=== PATIENT | male | born 1970 | race Caucasian/White ===

== ENCOUNTER 2025-01-21 21:35 | Inpatient (IN) | payer MEDICAID, OTHER ==
[~2025-01-21] VITALS: Ht 193 cm; Wt 129.9 kg
[~2025-01-21 21:35] MED LIST: ETAN50IN10 SUBCUT; LEVO112T4 PO
--- NOTE | 2025-01-21 21:56 | ED.PDOC ---
Anoop. trauma (HPI) HPI Comments HPI: Poor Historian. 54 y.o male presents to the ED via EMS for a chief complaint of lower back s/p mechanical fall today at 0300. Patient reports getting out of the shower, slipped and landed on his buttocks/back with legs in the air. Patient was able to get himself up to ambulate after the fall. he felt a shot of sharp pain to his lower back. Patient is unable to bear weight as pain is severe per patient. Pain is worse with raising of bilateral lower extremity while patient is laying supine in the gurney. Patient also mentions hitting his head against the wall while falling down. Patient denies any LOC, nausea, vomiting, or dizziness. Patient denies any use of blood thinners Patient took pain medication at home that his gave him but unknown name. He denies any other complaints or symptoms. Denies cauda equina like symptoms. Denies any numbness or tingling anywhere in his body since the fall. Per EMS, stable vital signs on scene and en route. VITALS: Temp: BP: HR: RR: SPO2 Past medical history:Thyroid Past surgical history: Denies Denies allergies. REVIEW OF SYSTEMS: CONSTITUTIONAL: Denies acute: fever, diaphoresis, chills, generalized weakness. HEAD: Denies acute: headache, photophobia Eyes: Denies acute: Double vision, vision loss, eye pain, eye discharge. EARS: Denies acute: tinnitus, hearing loss, ear discharge, ear pain, THROAT: Denies acute: sore throat, swelling, difficulty swallowing , pain with sw allowing, change in voice. NECK: Denies acute: neck pain, neck swelling, stiff neck. HEART: Denies acute : chest pain, palpitations, LUNGS: Denies acute: SOB, wheezing, cough, hemoptysis ABDOMEN: Denies acute: abdominal pain, Nausea, Vomiting, diarrhea, melena , hematemesis, hematochezia SKIN: Denies acute: rash, redness, lesions, itchiness. EXTREMITIES: Denies acute: calf pain, numbness, tingling, weakness, denies pain in extremity. Neuro: Denies acute: focal neurological deficit, motor or sensory focal neurological deficit, tremors, seizure like activity, confusion, dizziness, change in mental status, loss of bowel or bladder function, cauda equina like symptoms. : Denies acute: dysuria, hematuria, flank pain, increase in urinary frequency. PSYCH: Denies acute: hallucination, suicidal ideation, homicidal ideation. PHYSICAL EXAM: General: To moderate acute distress, awake and alert. Head: normocephalic, atraumatic. Neck: supple, trachea is midline, no swelling. Throat: Normal phonation. Eyes:, no erythema, no purulent discharge, no proptosis, no icterus. Heart: regular rate, regular rhythm, no significant murmur appreciated. Lungs: no apparent respiratory distress, Able to speak in full sentences. No wheezing, no rhonchi, no crackles. No stridors Clear to auscultation bilaterally. Abdomen: non tender to palpation, non distended, soft, no guarding, no rebound, + bowel sounds. Obese Neuro: Awake, Alert, oriented to name, self, situation, follows commands GCS=15. Speech is normal. Decreased range of motion of bilateral lower extremity knee and hip flexion due to low back pain. Patient was neurovascularly intact in bilateral lower extremities. Skin: no petechia, no purpura, no cyanosis, non-pale, not jaundice. Lower extremities: --no - Pitting edema no deformity, no focal swelling, no calf TTP. Makes eye contact. moves all four extremities. Palpation of the paraspinal lumbosacral area is tender to palpation. Face: no apparent facial droop. ED COURSE: Chief Complaint: Back Pain Time Seen by MD: 21:48 Reviewed notes: Nurses Notes, Medications, Allergies Allergies: Coded Allergies: NO KNOWN ALLERGIES (Unverified , 01/21/25) Information Source: Patient Mode of Arrival: EMS Severity: Moderate Past Medical History PAST MEDICAL HISTORY: Thyroid Surgical History: Denies all surgeries Family History Family History: Reviewed,noncontributory to illness Social History Smoker: Non-Smoker Alcohol: Denies ETOH Use Drugs: Denies Drug Use Lives In: Home Was a procedure done? Was a procedure done?: No Differential Diagnosis Multiple Trauma: Closed Head Injury, Cardiac Injury, Fractures, Intraabdominal Injury, Pneumothorax, Cerebral Contusion, Pulmonary Contusion, Spine Injury, Vascular Injury, Contusion, Hematoma, Other (DDX included but not limited to Cauda Equina syndrome, lumbar radiculopathy, arthritis, disk herniation, sciatica, muscle strain, epidural abscess, transverse myelitis. Cord compression, spinal foraminal stenosis, spinal fractures, spondylosis, central canal stenosis, trauma, muscle sprain/strain, aneurysm/dissection, kidney stones, shingles, arthritis, [place], neoplasm.) X-Ray, Labs, Meds, VS Vital Signs Date Time Temp Pulse Resp B/P (MAP) Pulse Ox O2 Delivery O2 Flow Rate FiO2 01/21/25 21:35 98.9 65 17 156/106 (123) 100 Lab Test 01/21/25 22:40 01/21/25 22:30 Range/Units Hemoglobin A1c 5.2 <5.7 % A1C White Blood Count 7.6 4.4-10.8 10^3/uL Red Blood Count 4.44 L 4.5-5.90 10^6/uL Hemoglobin 15.1 13.5-17.5 g/dL Hematocrit 43.4 41.0-53.0 % Mean Corpuscular Volume 97.8 80.0-100.0 fL Mean Corpuscular Hemoglobin 34.0 H 28.0-32.0 pg Mean Corpuscular Hemoglobin Concent 34.8 32.0-36.0 g/dL Red Cell Distribution Width 12.7 11.8-14.3 % Platelet Count 280 140-450 10^3/uL Mean Platelet Volume 6.4 L 6.9-10.8 fL Neutrophils (%) (Auto) 65.3 37.0-80.0 % Lymphocytes (%) (Auto) 22.9 10.0-50.0 % Monocytes (%) (Auto) 8.0 0.0-12.0 % Eosinophils (%) (Auto) 2.9 0.0-7.0 % Basophils (%) (Auto) 0.9 0.0-2.0 % Neutrophils # (Auto) 5.0 1.6-8.6 10 ^3/uL Lymphocytes # (Auto) 1.7 0.4-5.4 10 ^3/uL Monocytes # (Auto) 0.6 0-1.3 10 ^3/uL Eosinophils # (Auto) 0.2 0-0.8 10 ^3/uL Basophils # (Auto) 0.1 0-0.2 10 ^3/uL Nucleated Red Blood Cells 0.0 % Sodium Level 137 136-145 mmol/L Potassium Level 4.0 3.5-5.1 mmol/L Chloride Level 105 98-107 mmol/L Carbon Dioxide Level 23 20-31 mmol/L Anion Gap 9 5-15 Blood Urea Nitrogen 9 9-23 mg/dL Creatinine 0.94 0.700-1.30 mg/dL Glomerular Filtration Rate Calc 95 >90 mL/min BUN/Creatinine Ratio 9.6 L 10.0-20.0 Serum Glucose 86 74-106 mg/dL Lactic Acid Level 1.8 0.4-2.0 mmol/L Calcium Level 9.7 8.7-10.4 mg/dL Total Bilirubin 0.6 0.2-1.0 mg/dL Aspartate Amino Transferase (AST) 18 13-40 U/L Alanine Aminotransferase (ALT) 21 7-40 U/L Alkaline Phosphatase 104 46-116 U/L Creatine Kinase 103 46-171 U/L Troponin I High Sensitivity 62 *H </=54 ng/L Total Protein 7.6 5.7-8.2 g/dL Albumin 4.9 H 3.2-4.8 g/dL Triglycerides Level 377 H < 150 mg/dL Cholesterol Level 212 H < 200 mg/dL LDL Cholesterol 128 H < 100 mg/dL HDL Cholesterol 39 L 40-59 mg/dL Current Medications Medications (Trade) Dose Ordered Sig/Ghazala Route Start Time Stop Time Status Last Admin Aspirin (Ecotrin Enteric Coated Tablet) 325 mg ONCE ONCE PO 01/21/25 23:15 01/21/25 23:20 DC 01/22/25 01:19 [place] [id number] Ph: [phone] DIAGNOSTIC IMAGING Diagnostic Imaging Report : [id number] Signed PATIENT: ARIN LOUIE ACCT: [id number] UNIT: [id number] : 1970 LOC: ER ROOM / BED: / AGE / SEX: 54 / M ADM STATUS: REG ER SERVICE 51 ORDERING PHYSICIAN: JAKUB FENG DO PROCEDURE(s): HWOCT - HEAD WITHOUT CONTRAST REASON: fall ORDER NUMBER(s): [id number], ACCESSION NUMBER(s): [id number] CT HEAD WITHOUT CONTRAST INDICATION: fall COMPARISON: None TECHNIQUE: CT of the head without intravenous contrast. RADIATION DOSE: CTDIvol: 63.67 mGy, DLP: 2793.26 mGy*cm FINDINGS: There is no evidence of intracranial hemorrhage, infarct, extra-axial collection, mass effect, midline shift, herniation or hydrocephalus. The ventricles, sulci and cisterns are normal. The moore-white differentiation is normal. Mucosal thickening in right frontal, bilateral ethmoid and right maxillary sinuses. Mastoid air cells and middle ear cavities are clear. Soft tissues and osseous structures are unremarkable. IMPRESSION: No intracranial abnormality identified. ATED BY: ADIEL GORDILLO MD DICTATED DATE/TIME: 01/21/252246 SIGNED BY: ADIEL GORDILLO MD SIGNED DATE/TIME: 01/21/252246 CC: [place] [id number] Ph: [phone] DIAGNOSTIC IMAGING Diagnostic Imaging Report : [id number] Signed PATIENT: ARIN LOUIE ACCT: [id number] UNIT: [id number] : 1970 LOC: ER ROOM / BED: / AGE / SEX: 54 / M ADM STATUS: REG ER SERVICE 51 ORDERING PHYSICIAN: JAKUB FENG DO PROCEDURE(s): ABPL - CT AB PEL WO CON-NO ORAL OR IV REASON: low back pain/fall injury ORDER NUMBER(s): [id number], ACCESSION NUMBER(s): [id number] Exam: CT AB PEL WO CON-NO ORAL OR IV History: low back pain/fall injury Comparison Study: None Contrast: None TECHNIQUE: Multidetector CT of abdomen and pelvis without intravenous contrast Radiation Dose Information: CT Dose: CTDI volume is 22.97 mGy. Dose-length product is 2793.26 mGy*cm FINDINGS: Lung bases demonstrate possible small airways disease. Heart is normal in size. Lower esophagus is unremarkable. Liver, gallbladder, spleen, pancreas, adrenals, liver, bladder, prostate, gastrointestinal tract are grossly unremarkable. Patient has probably had appendectomy. Pelvis is intact. Visualized ribs are intact. There is a simple cyst in the inferior pole of the right kidney which is of no clinical consequence . There is anterior wedging of L1 and T12 and T11. No definite fractures. No hernias are appreciated. IMPRESSION: 1. No trauma related changes. Possible small airways disease in the lower lobes of the lungs. ATED BY: NARINDER KOCH MD DICTATED DATE/TIME: 01/21/252309 SIGNED BY: NARINDER KOCH MD SIGNED DATE/TIME: 01/21/252309 CC: Time of 1ST Reevaluation: 21:52 Reevaluation 1ST: Unchanged Patient Education/Counseling: Diagnosis, Treatment Family Education/Counseling: No Family Present Comments Patient presented with the above HPI.---fall/low back pain injury---workup was initiated. patient was found with the above mentioned diagnosis. the following medications were ordered: please refer to order lists of meds and tests obtained by myself Dr. Feng. Patient ED course and VS have been stabilized. Patient has been reassessed in the ED and remained in a stable condition. Pertinent incidental findings were discussed with the patient and/or family. Patient/family voices understanding and is agreeable with plan. Patient has been observed in the ED adequate length of time to insure improvement/stability. Escalation of care considered: Consideration of escalation to observation or admission Patient was ADMITTED to the medicine team for further evaluation and treatment of their presentation. She was found with slightly elevated troponin. Denies any associated chest pain or shortness of breath. Patient was given aspirin. All the reports of any imaging studies that were ordered by myself were reviewed by myself. Departure 1 Departure Time of Disposition: 23:05 Impression: Primary Impression: Low back pain Additional Impressions: Fall Elevated troponin Disposition: ADMITTED INPATIENT Admit to: Tele Condition: Guarded Discharged With: Self Critical Care Note Critical Care Time?: Yes (35 min-critical care time only) I personally scribed for JAKUB FENG DO ([email or web address]) on 01/21/25 at 21:56. Electronically submitted by Conchis Mahoney ([facility]). I personally scribed for JAKUB FENG DO ([email or web address]) on 01/22/25 at 01:06. Electronically submitted by Gabriel Woods ([email or web address]). JAKUB FENG DO Jan 21, 2025 21:56
[2025-01-21 22:44] LABS: Basophils # (auto) 0.1 10 ^3/uL (0-0.2); Basophils % (auto) 0.9 % (0.0-2.0); Eosinophils # (auto) 0.2 10 ^3/uL (0-0.8); Eosinophils % (auto) 2.9 % (0.0-7.0); Hematocrit 43.4 % (41.0-53.0); Hemoglobin 15.1 g/dL (13.5-17.5); Lymphocytes # (auto) 1.7 10 ^3/uL (0.4-5.4); Lymphocytes % (auto) 22.9 % (10.0-50.0); Mean Corpuscular Hgb Conc. 34.8 g/dL (32.0-36.0); Mean Corpuscular Volume 97.8 fL (80.0-100.0); Monocytes # (auto) 0.6 10 ^3/uL (0-1.3); Neutrophils % (auto) 65.3 % (37.0-80.0); Platelet Count (auto) 280 10^3/uL (140-450); Red Blood Cells 4.44 10^6/uL (4.5-5.90); Red Cell Distribution Width 12.7 % (11.8-14.3); White Blood Cell 7.6 10^3/uL (4.4-10.8)
--- NOTE | 2025-01-21 22:49 | DVH ---
CT HEAD WITHOUT CONTRAST INDICATION: fall COMPARISON: None TECHNIQUE: CT of the head without intravenous contrast. RADIATION DOSE: CTDIvol: 63.67 mGy, DLP: 2793.26 mGy*cm FINDINGS: There is no evidence of intracranial hemorrhage, infarct, extra-axial collection, mass effect, midli ne shift, herniation or hydrocephalus. The ventricles, sulci and cisterns are normal. The moore-white differentiation is normal. Mucosal thickening in right frontal, bilateral ethmoid and right maxillary sinuses. Mastoid air cells and middle ear cavities are clear. Soft tissues and osseous structures ar e unremarkable. IMPRESSION: No intracranial abnormality identified.
[2025-01-21 22:58] LABS: Alanine Aminotransferase 21 U/L (7-40); Alkaline Phosphatase 104 U/L (46-116); Anion Gap 9 (5-15); Aspartate Aminotransferase 18 U/L (13-40); BUN/Creatinine Ratio 9.6 (10.0-20.0); Bilirubin, Total 0.6 mg/dL (0.2-1.0); Calcium 9.7 mg/dL (8.7-10.4); Carbon Dioxide 23 mmol/L (20-31); Chloride 105 mmol/L (98-107); Creatine Kinase IFCC 103 U/L (46-171); Glucose 86 mg/dL (74-106); Sodium 137 mmol/L (136-145); Total Protein 7.6 g/dL (5.7-8.2)
[2025-01-21 23:02] LABS: Albumin 4.9 g/dL (3.2-4.8); Blood Urea Nitrogen 9 mg/dL (9-23)
--- NOTE | 2025-01-21 23:13 | DVH ---
Exam: CT AB PEL WO CON-NO ORAL OR IV History: low back pain/fall injury Comparison Study: None Contrast: None TECHNIQUE: Multidetector CT of abdomen and pelvis without intravenous contrast Radiation Dose Information: CT Dose: CTDI volume is 22.97 mGy. Dose-length product is 2793.26 mGy*cm FINDINGS: Lung bases demonstrate possible small airways disease. Heart is normal in size. Lower esophagus is unremarkable. Liver, gallbladder, spleen, pancreas, adrenals, liver, bladder, prostate, gastrointestinal tract are grossly unremarkable. Patient has probably had appendectomy. Pelvis is intact. Visualized ribs are intact. There is a simple cyst in the inferior pole of the righ t kidney which is of no clinical consequence . There is anterior wedging of L1 and T12 and T11. No d efinite fractures. No hernias are appreciated. IMPRESSION: 1. No trauma related changes. Possible small airways disease in the lower lobes of the lungs.
[2025-01-22] MEDS ORDERED: ACETAMINOPHEN 325 MG TAB PO PRN
[2025-01-22] MEDS ORDERED: NITROGLYCERIN 0.4 MG SL TAB SL PRN
[2025-01-22] MEDS ORDERED: MORPHINE SULFATE INJ 2 MG/ml SYRG IV PRN
[2025-01-22] MEDS ORDERED: ONDANSETRON HCL 4 MG/2 ML VIAL IV PRN
[2025-01-22 00:13] LABS: Cholesterol 212 mg/dL (< 200); HDL Cholesterol 39 mg/dL (40-59); LDL Cholesterol 128 mg/dL (< 100); Triglycerides 377 mg/dL (< 150)
--- NOTE | 2025-01-22 00:15 | DVHHPRES ---
History of Present Illness Resident Creating Document: MARTA CASTELLANOS History of Present Illness This is a 54 year old male with a past medical history of psoriatic arthritis and hypothyroidism who presented to the ED with a chief complaints of mid back pain. According to the patient, he slipped and fell after shower. He mentioned that the floor was wet and he fell without loss of consciousness. He did not want to come to the ED until his daughter forced him to come to the ED and she called 911. CT pelvic did not reveal any trauma related changes. Possible small airways disease in the lower lobes of the lungs. He takes Enbrel for his psoriatic arthritis. On further questioning, Patient admits to using marijuana, has a remote history of methamphetamine and cocaine. However, he recently had cocaine and amphetamine use with his friends. This could probably explain the elevated troponin noted on today's examination lab work. Musculoskeletal: Other (psoariatic arthritis) Past Medical History See HPI Family History: None Smoke: # pack years (10 yeras pack history) Lives: with Family Review of Systems Constitutional: No: Fever, Chills, Sweats, Weakness, Malaise, Other Eyes: No: Pain, Vision change, Conjunctivae inflammation, Eyelid inflammation, Other, Redness ENT: No: Ear pain, Ear discharge, Nose pain, Nose discharge, Nose congestion, Mouth pain, Mouth swelling, Throat pain, Throat swelling, Other Respiratory: No: Cough, Dry, Shortness of breath, SOB with excertion, Wheezing, Hemoptysis, Pleuritic Pain, Sputum, Wheezing, Other Cardiovascular: No: Chest Pain, Palpitations, Orthopnea, Paroxysmal Noc. Dyspnea, Edema, Lt Headedness, Other Gastrointestinal: No: Nausea, Vomiting, Abdominal Pain, Diarrhea, Constipation, Melena, Hematochezia, Other Genitourinary: No Dysuria, No Frequency, No Incontinence, No Hematuria, No Retention, No Other Musculoskeletal: No: other, neck pain, shoulder pain, arm pain, back pain, hand pain, leg pain, foot pain Skin: No: Rash, Lesions, Jaundice, Bruising, Other Neurological: No: Weakness, Numbness, Incoordination, Change in speech, Confusion, Seizures, Other Allergies: Coded Allergies: NO KNOWN ALLERGIES (Unverified , 01/21/25) Medications Current Medications Medications Dose Ordered Sig/Ghazala Route Start Time Stop Time Status Last Admin Dose Admin Acetaminophen 650 mg Q6HP PRN PO 01/22/25 00:00 Ondansetron HCl 4 mg Q4HP PRN IV 01/22/25 00:00 Morphine Sulfate 2 mg Q4HPRN PRN IV 01/22/25 00:00 Enoxaparin Sodium 40 mg DAILY SC 01/22/25 10:00 Nitroglycerin 0.4 mg Q5MINP PRN SL 01/22/25 00:00 Morphine Sulfate 2 mg Q30M PRN IV 01/22/25 00:00 Exam Vital Signs Vital Signs Date Time Temp Pulse Resp B/P (MAP) Pulse Ox O2 Delivery O2 Flow Rate FiO2 01/21/25 21:35 98.9 65 17 156/106 (123) 100 Exam pending thorough neurological exam patient is currently not cooperating as he is in so much pain.Order placed for [place]. Will re-assess him once the pain is in improved. General Appearance: Oriented X3, severe distress HEENT: Atraumatic, PERRLA, EOMI, Mucous membr. moist/pink Respiratory: Clear to auscultation, Normal air movement Cardiovascular: Regular rate, Normal S1, Normal S2 Abdominal: Normal bowel sounds, Soft, No tenderness, No hepatospenomegaly Extremities: No clubbing, No cyanosis, No edema, Normal pulses Skin: No rashes, No breakdown Neuro: Strength at 5/5 X4 ext, Normal tone, Sensation intact, Cranial nerves 3- 12 NL, Reflexes 2+, Other (No weakness noted, patient is able to urinate without difficulties, no tingling sensation) Labs/Xrays Labs Test 01/21/25 23:51 01/21/25 22:40 01/21/25 22:30 Range/Units Hemoglobin A1c 5.2 <5.7 % A1C White Blood Count 7.6 4.4-10.8 10^3/uL Red Blood Count 4.44 L 4.5-5.90 10^6/uL Hemoglobin 15.1 13.5-17.5 g/dL Hematocrit 43.4 41.0-53.0 % Mean Corpuscular Volume 97.8 80.0-100.0 fL Mean Corpuscular Hemoglobin 34.0 H 28.0-32.0 pg Mean Corpuscular Hemoglobin Concent 34.8 32.0-36.0 g/dL Red Cell Distribution Width 12.7 11.8-14.3 % Platelet Count 280 140-450 10^3/uL Mean Platelet Volume 6.4 L 6.9-10.8 fL Neutrophils (%) (Auto) 65.3 37.0-80.0 % Lymphocytes (%) (Auto) 22.9 10.0-50.0 % Monocytes (%) (Auto) 8.0 0.0-12.0 % Eosinophils (%) (Auto) 2.9 0.0-7.0 % Basophils (%) (Auto) 0.9 0.0-2.0 % Neutrophils # (Auto) 5.0 1.6-8.6 10 ^3/uL Lymphocytes # (Auto) 1.7 0.4-5.4 10 ^3/uL Monocytes # (Auto) 0.6 0-1.3 10 ^3/uL Eosinophils # (Auto) 0.2 0-0.8 10 ^3/uL Basophils # (Auto) 0.1 0-0.2 10 ^3/uL Nucleated Red Blood Cells 0.0 % Sodium Level 137 136-145 mmol/L Potassium Level 4.0 3.5-5.1 mmol/L Chloride Level 105 98-107 mmol/L Carbon Dioxide Level 23 20-31 mmol/L Anion Gap 9 5-15 Blood Urea Nitrogen 9 9-23 mg/dL Creatinine 0.94 0.700-1.30 mg/dL Glomerular Filtration Rate Calc 95 >90 mL/min BUN/Creatinine Ratio 9.6 L 10.0-20.0 Serum Glucose 86 74-106 mg/dL Lactic Acid Level 1.8 0.4-2.0 mmol/L Calcium Level 9.7 8.7-10.4 mg/dL Total Bilirubin 0.6 0.2-1.0 mg/dL Aspartate Amino Transferase (AST) 18 13-40 U/L Alanine Aminotransferase (ALT) 21 7-40 U/L Alkaline Phosphatase 104 46-116 U/L Creatine Kinase 103 46-171 U/L Total Protein 7.6 5.7-8.2 g/dL Albumin 4.9 H 3.2-4.8 g/dL Triglycerides Level 377 H < 150 mg/dL Cholesterol Level 212 H < 200 mg/dL LDL Cholesterol 128 H < 100 mg/dL HDL Cholesterol 39 L 40-59 mg/dL Assessment/Plan Assessment/Plan Assessment and Plan Muscle strain secondary fo mechanical fall. No fractures noted on imaging Plan: --> check CK --> Adequate pain control with [place] --> PT evaluation --> monitor for any neurological deficiencies NSTEMI type II, rule out ACS --> Troponin: 62-->65 -->likely secondary to elevated high blood pressure in the setting of lower back pain after the fall --> Pain control for now, see above --> ECHO Polysubstance abuse --> Amphetamine --> Cannabinoid --> Educated the negative effects of substance abuse Psoriatic arthritis --> Continue Enbrel Hypothyroidism --> On levothyroxine 400mcg --> Check TSH Dyslipidemia --> Start Atorvastatin Obesity --> BMI: 36.6 --> Advise patient on weight loss and healthy diet Goal of care discussed for more than 30 minutes, full code status case and plan discussed with Dr. Henderson Plan discussed with: Patient Date of Service: Jan 21, 2025 Billing Provider: AILYN HENDERSON MD Common Visit Codes: [id number] INP/OBS CARE (HIGH) MARTA CASTELLANOS RESIDENT Jan 22, 2025 00:15 AILYN HENDERSON MD Jan 22, 2025 17:30
[2025-01-22] MEDS: HYDROcodone-ACET 5/325MG TAB PO ONE (01:16)
[2025-01-22] MEDS: HYDROcodone-ACET 7.5/325MG TAB PO ONE (01:19)
[2025-01-22] MEDS: ASPirin-EC 325mg tab PO ONE (01:19)
[2025-01-22 02:17] LABS: Urine Bacteria None Seen /hpf (None Seen)
[2025-01-22 02:35] LABS: Urine Blood Negative /uL (Negative); Urine Clarity Clear (Clear); Urine Color Colorless (Yellow); Urine Protein, UAD Negative (Negative); Urine Specific Gravity 1.009 (1.001-1.035); Urine Squamous Epithelial Cell FEW /hpf (<5); Urine Urobilinogen Normal (Negative); Urine WBC < 1 /HPF (0-3); Urine pH 7.5 (5.0-9.0)
[2025-01-22 02:40] LABS: Cannabinoid Screen, Urine Pos (NEGATIVE)
[2025-01-22 02:52] LABS: Amphetamine Screen, Urine Pos (NEGATIVE); Barbiturate Scree,Urine Neg (NEGATIVE); Benzodiazephine Screen, Urine Neg (NEGATIVE); Cocaine Screen, Urine Neg (NEGATIVE); Opiate Scree,Urine Neg (NEGATIVE); Phencyclidine Screen, Urine Neg (NEGATIVE)
[2025-01-22 04:33] LABS: Basophils # (auto) 0.1 10 ^3/uL (0-0.2); Basophils % (auto) 0.9 % (0.0-2.0); Eosinophils # (auto) 0.2 10 ^3/uL (0-0.8); Eosinophils % (auto) 2.9 % (0.0-7.0); Hemoglobin 14.5 g/dL (13.5-17.5); Lymphocytes # (auto) 1.6 10 ^3/uL (0.4-5.4); Lymphocytes % (auto) 20.2 % (10.0-50.0); Mean Corpuscular Hemoglobin 34.2 pg (28.0-32.0); Mean Corpuscular Hgb Conc. 35.5 g/dL (32.0-36.0); Mean Corpuscular Volume 96.5 fL (80.0-100.0); Monocytes # (auto) 0.7 10 ^3/uL (0-1.3); Monocytes % (auto) 8.3 % (0.0-12.0); Neutrophils # (auto) 5.3 10 ^3/uL (1.6-8.6); Neutrophils % (auto) 67.7 % (37.0-80.0); Platelet Count (auto) 296 10^3/uL (140-450); Red Blood Cells 4.25 10^6/uL (4.5-5.90); Red Cell Distribution Width 12.8 % (11.8-14.3); White Blood Cell 7.8 10^3/uL (4.4-10.8)
[2025-01-22 04:41] LABS: Chloride 104 mmol/L (98-107); Potassium 3.9 mmol/L (3.5-5.1); Sodium 137 mmol/L (136-145)
[2025-01-22 04:42] LABS: Anion Gap 9 (5-15); Calcium 9.5 mg/dL (8.7-10.4); Carbon Dioxide 24 mmol/L (20-31)
[2025-01-22 04:47] LABS: BUN/Creatinine Ratio 11.3 (10.0-20.0); Blood Urea Nitrogen 11 mg/dL (9-23); Glucose 103 mg/dL (74-106)
[2025-01-22] MEDS: LEVOTHYROXINE SODIUM 100 MCG TAB PO SCH (06:07)
[2025-01-22 06:28] VITALS: RESP 16; O2SAT 98
[2025-01-22] MEDS: MORPHINE SULFATE INJ 2 MG/ml SYRG IV PRN (08:01)
--- NOTE | 2025-01-22 09:19 | DVHPNRES ---
Progress Note Date Seen: Jan 22, 2025 Resident Creating Document: SILAS NASCIMENTO RESIDENT Medical Necessity Reason Pt with a Central, PICC or Fol: No Subjective Review of Systems This is a 54 year old male with a past medical history of psoriatic arthritis and hypothyroidism who presented to the ED with a chief complaints of mid back pain. According to the patient, he slipped and fell after shower. He mentioned that the floor was wet and he fell without loss of consciousness. He did not want to come to the ED until his daughter forced him to come to the ED and she called 911. CT pelvic did not reveal any trauma related changes. Possible small airways disease in the lower lobes of the lungs. He takes Enbrel for his psoriatic arthritis. On further questioning, Patient admits to using marijuana, has a remote history of methamphetamine and cocaine. However, he recently had cocaine and amphetamine use with his friends. This could probably explain the elevated troponin noted on today's examination lab work. The patient was seen and examined on the bedside. He is alert oriented x3. Complaint of back pain and not able to move due to the back pain. No other active complaint Constitutional: No: Fever, Chills, Sweats, Weakness, Malaise, Other Eyes: No: Pain, Vision change, Conjunctivae inflammation, Eyelid inflammation, Other, Redness ENT: No: Ear pain, Ear discharge, Nose pain, Nose discharge, Nose congestion, Mouth pain, Mouth swelling, Throat pain, Throat swelling, Other Respiratory: Shortness of breath, improving No: Cough, Dry,Wheezing, Hemoptysis, Pleuritic Pain, Sputum, Wheezing, Other Cardiovascular: No: Chest Pain, Palpitations, Orthopnea, Paroxysmal Noc. Dyspnea, Edema, Lt Headedness, Other Gastrointestinal: No: Nausea, Vomiting, Abdominal Pain, Diarrhea, Constipation, Melena, Hematochezia, Other Musculoskeletal: Back pain No: other, neck pain, shoulder pain, arm pain, hand pain, leg pain, foot pain Neurological:; No: Weakness, Numbness, Incoordination, Change in speech, Confusion, Seizures Objective vital signs Vital Sign Date Time Temp Pulse Resp B/P (MAP) Pulse Ox O2 Delivery O2 Flow Rate FiO2 01/22/25 08:31 87 12 143/87 01/22/25 07:26 Room Air* 0 21 01/22/25 06:34 98.7 98 98.7 medications Current Medications Medications Dose Ordered Sig/Ghazala Route Start Time Stop Time Status Last Admin Dose Admin Acetaminophen 650 mg Q6HP PRN PO 01/22/25 00:00 Ondansetron HCl 4 mg Q4HP PRN IV 01/22/25 00:00 Morphine Sulfate 2 mg Q4HPRN PRN IV 01/22/25 00:00 01/22/25 08:01 2 MG Enoxaparin Sodium 40 mg DAILY SC 01/22/25 10:00 Nitroglycerin 0.4 mg Q5MINP PRN SL 01/22/25 00:00 Acetaminophen/ Hydrocodone Bitart 1 tab Q4HP PRN PO 01/22/25 01:15 Atorvastatin Calcium 20 mg HS PO 01/22/25 22:00 Levothyroxine Sodium 400 mcg QAM@0600 PO 01/22/25 06:00 01/22/25 06:07 400 MCG Examination Physical examination: General Appearance: Alert, Oriented X3, Cooperative, mild distress HEENT: Atraumatic, PERRLA, EOMI, Mucous membrane moist/pink Respiratory: Clear to auscultation, Normal air movement Cardiovascular: Regular rate, Normal S1, Normal S2, No murmurs, no chest wall tenderness Abdominal: Normal bowel sounds, Soft, No tenderness, No hepatospenomegaly, No masses Extremities: No clubbing, No cyanosis, No edema, Normal pulses, No tenderness/swelling Skin: No rashes, No breakdown, No significant lesion Neuro: Normal speech, Strength at 5/5 X4 ext, Normal tone, Sensation intact, grossly intact cranial nerves Psych/Mental Status: Mental status NL, Mood NL laboratory and microbiology Laboratory Tests 01/22/25 04:24 Test 01/22/25 04:24 Range/Units Serum Glucose 103 74-106 mg/dL Labs and/or images reviewed: Labs reviewed by me, Image(s) reviewed by me Problem List/Assessment/Plan Problem List/Assessment/Plan Assessment and plan: # S/P mechanical fall - CT abdomen pelvis without contrast was negative for trauma - IV morphine 2 mg q.4 p.r.n. - [place] 7.5/325 mg p.o. q.4 p.r.n. # Possible NSTEMI type 2, rule out ACS - EKG revealed sinus rhythm, negative for ST-T changes - Troponin trends were 62>65>64 - BNP is normal - Pending chest x-ray, echo. # History of psoriatic arthritis - Continue Enbrel # Polysubstance abuse disorder - UDS positive for amphetamine and cannabinoids - Counseled patient regarding drug abuse and rehabilitation # Chronic hypothyroidism - Levothyroxine 400 mcg at q.a.m. - TSH is elevated because patient is noncompliance with the medication - Monitor TSH # Dyslipidemia - Atorvastatin 20 mg po at HS # Class 2 obesity, BMI 36.6 kg/m2 - Counseled the patient healthy diet, weight loss, moderate intensity physical exercise for 35-40 minutes for 5 times a week PUD prophylaxis: Pepcid 20 mg p.o. daily DVT prophylaxis: Lovenox 40 mg sc daily Code status : Full code Plan discussed with Dr. Ohara Plan discussed with: Patient, Other Date of Service: Jan 22, 2025 Billing Provider: NICOLÁS WYATT MD Common Visit Codes: [id number] INP/OBS CARE(HIGH) SILAS NASCIMENTO RESIDENT Jan 22, 2025 09:19 NICOLÁS WYATT MD Jan 27, 2025 23:30
[2025-01-22] MEDS: ENOXAPARIN SOD 40 MG/0.4 ML SYRINGE SC SCH (10:00)
[2025-01-22] MEDS: HYDROcodone-ACET 7.5/325MG TAB PO PRN (10:23)
--- NOTE | 2025-01-22 14:56 | DVH ---
CHEST RADIOGRAPH Indication: NSTEMI Technique: Single frontal view of the chest was obtained Comparison: None FINDINGS: Lines and Tubes: None Lungs: No focal consolidation. Pleura: No effusion. No pneumothorax. Cardiomediastinal contours: Unremarkable Bones: No acute osseous abnormality. IMPRESSION: No acute cardiopulmonary disease.
[2025-01-22] MEDS ORDERED: FAMOTIDINE 20 MG TAB PO ONE (15:30)
[2025-01-22 16:01] VITALS: BP 130/87; PULSE 79; RESP 20; TEMP 97.3; O2SAT 92
[2025-01-22 16:51] VITALS: BP 130/87; PULSE 79; RESP 17; TEMP 97.3; O2SAT 94
[2025-01-22 20:00] VITALS: PULSE 81; PULSE 89; RESP 18; O2SAT 97
[2025-01-22 20:43] VITALS: BP 123/86; PULSE 90; RESP 19; TEMP 98.6; O2SAT 94
[2025-01-22] MEDS: ATORVASTATIN 20 MG TAB PO SCH (21:04)
[2025-01-23] VITALS (8 sets, daily range): BP systolic 110–120; BP diastolic 73–78; PULSE 66–106; RESP 18–21; TEMP 98–98.6; O2SAT 91–97
[2025-01-23 07:43] LABS: Basophils # (auto) 0.1 10 ^3/uL (0-0.2); Basophils % (auto) 0.9 % (0.0-2.0); Eosinophils # (auto) 0.2 10 ^3/uL (0-0.8); Eosinophils % (auto) 3.2 % (0.0-7.0); Hematocrit 44.2 % (41.0-53.0); Hemoglobin 15.1 g/dL (13.5-17.5); Lymphocytes # (auto) 1.7 10 ^3/uL (0.4-5.4); Lymphocytes % (auto) 24.1 % (10.0-50.0); Mean Corpuscular Hgb Conc. 34.1 g/dL (32.0-36.0); Mean Corpuscular Volume 96.8 fL (80.0-100.0); Monocytes # (auto) 0.7 10 ^3/uL (0-1.3); Monocytes % (auto) 9.4 % (0.0-12.0); Neutrophils # (auto) 4.3 10 ^3/uL (1.6-8.6); Neutrophils % (auto) 62.4 % (37.0-80.0); Nucleated Red Blood Cells % 0.1 %; Platelet Count (auto) 322 10^3/uL (140-450); Red Blood Cells 4.57 10^6/uL (4.5-5.90); White Blood Cell 6.9 10^3/uL (4.4-10.8)
[2025-01-23 07:46] LABS: Chloride 104 mmol/L (98-107); Sodium 137 mmol/L (136-145)
[2025-01-23 07:47] LABS: Anion Gap 9 (5-15); Carbon Dioxide 24 mmol/L (20-31)
[2025-01-23 07:48] LABS: Calcium 9.6 mg/dL (8.7-10.4)
[2025-01-23 07:52] LABS: Glucose 97 mg/dL (74-106)
[2025-01-23 07:53] LABS: Blood Urea Nitrogen 17 mg/dL (9-23)
[2025-01-23] MEDS ORDERED: CYCLOBENZAPRINE HCL 10 MG TAB PO PRN (09:30)
[2025-01-23] MEDS: FAMOTIDINE 20 MG TAB PO SCH (09:46)
[2025-01-23] MEDS: KETOROLAC TROMETH 30 MG/ML 1ML VIAL IV ONE (11:53)
[2025-01-23] MEDS: methylPREDNISolone SOD SUCC 125 MG/2 ML VL IV ONE (11:53)
--- NOTE | 2025-01-23 14:30 | DVH ---
EXAM: CT LS SPINE WO CONTRAST HISTORY: Severe back pain COMPARISON: None CTDIvol 37.52 mGy, DLP 1322.67 mGy*cm. TECHNIQUE: Multiple axial CT images of the spine were obtained using bone algorithm. Axial and coron al reformatting was done. Bone and soft tissue windows were reviewed. FINDINGS: No CT evidence of definite acute fracture, spinal dislocation, or significant appearing acute subluxa tion is seen. The visualized paraspinal soft tissues are grossly unremarkable. Mild disc osteophyte hypertrophy and suggestion of mild canal stenosis at L4-L5. IMPRESSION: No definite CT evidence of acute fracture or dislocation of the bony lumbar spine.
--- NOTE | 2025-01-23 16:54 | DVHPNRES ---
Progress Note Date Seen: Jan 23, 2025 Resident Creating Document: SILAS NASCIMENTO RESIDENT Medical Necessity Reason Pt with a Central, PICC or Fol: No Subjective Review of Systems Patient was seen examined on the bedside. He is alert oriented x3. Complaint of severe back pain and not able to move to go to washroom. Ordered CT lumbosacral spine with contrast. Objective vital signs Vital Sign Date Time Temp Pulse Resp B/P (MAP) Pulse Ox O2 Delivery O2 Flow Rate FiO2 01/23/25 13:00 98.5 82 21 113/73 (86) 93 98.5 01/23/25 08:00 Room Air* 0 21 Total Intake and Output 01/22/25 01/22/25 01/23/25 15:00 23:00 07:00 Intake Total 300 ml 450 ml Output Total 800 ml Balance 300 ml -350 ml medications Current Medications Medications Dose Ordered Sig/Ghazala Route Start Time Stop Time Status Last Admin Dose Admin Acetaminophen 650 mg Q6HP PRN PO 01/22/25 00:00 Ondansetron HCl 4 mg Q4HP PRN IV 01/22/25 00:00 Morphine Sulfate 2 mg Q4HPRN PRN IV 01/22/25 00:00 01/22/25 21:05 2 MG Enoxaparin Sodium 40 mg DAILY SC 01/22/25 10:00 Nitroglycerin 0.4 mg Q5MINP PRN SL 01/22/25 00:00 Acetaminophen/ Hydrocodone Bitart 1 tab Q4HP PRN PO 01/22/25 01:15 01/23/25 03:00 1 TAB Atorvastatin Calcium 20 mg HS PO 01/22/25 22:00 01/22/25 21:04 20 MG Levothyroxine Sodium 400 mcg QAM@0600 PO 01/22/25 06:00 01/23/25 05:07 400 MCG Famotidine 20 mg DAILY PO 01/23/25 10:00 01/23/25 09:46 20 MG Cyclobenzaprine HCl 5 mg Q8HPRN PRN PO 01/23/25 09:30 Examination Physical examination: General Appearance: Alert, Oriented X3, Cooperative, No acute distress HEENT: Atraumatic, PERRLA, EOMI, Mucous membrane moist/pink Respiratory: Clear to auscultation, Normal air movement Cardiovascular: Regular rate, Normal S1, Normal S2, No murmurs, no chest wall tenderness Abdominal: Normal bowel sounds, Soft, No tenderness, No hepatospenomegaly, No masses Extremities: Possible muscle spasm, No clubbing, No cyanosis, No edema, Normal pulses. Skin: No rashes, No breakdown, No significant lesion Neuro: Normal gait, Normal speech, Strength at 5/5 X4 ext, Normal tone, Sensation intact, Cranial nerves 3-12 NL, Reflexes 2+ Psych/Mental Status: Mental status NL, Mood NL laboratory and microbiology Laboratory Tests 01/23/25 06:15 Test 01/23/25 06:15 Range/Units Serum Glucose 97 74-106 mg/dL Labs and/or images reviewed: Labs reviewed by me, Image(s) reviewed by me Problem List/Assessment/Plan Problem List/Assessment/Plan Assessment and plan: # S/P mechanical fall - CT abdomen pelvis without contrast was negative for trauma - IV morphine 2 mg q.4 p.r.n. - [place] 7.5/325 mg p.o. q.4 p.r.n. - Flexiril p.o. Q 8 HR p.r.n. - IV methylprednisolone 80 mg once - CT of L/S spine without contrast showed no definite CT evidence of acute fracture or dislocation of the bony lumbar spine. # Possible NSTEMI type 2, rule out ACS - EKG revealed sinus rhythm, negative for ST-T changes - Troponin trends were 62>65>64 - BNP is normal - Pending chest x-ray, echo. # History of psoriatic arthritis - Continue Enbrel # Polysubstance abuse disorder - UDS positive for amphetamine and cannabinoids - Counseled patient regarding drug abuse and rehabilitation # Chronic hypothyroidism - Levothyroxine 400 mcg at q.a.m. - TSH is elevated because patient is noncompliance with the medication - Monitor TSH # Dyslipidemia - Atorvastatin 20 mg po at HS # Class 2 obesity, BMI 36.6 kg/m2 - Counseled the patient healthy diet, weight loss, moderate intensity physical exercise for 35-40 minutes for 5 times a week PUD prophylaxis: Pepcid 20 mg p.o. daily DVT prophylaxis: Lovenox 40 mg sc daily Code status : Full code Plan discussed with Dr. Ohara Plan discussed with: Patient, Other My Orders My Orders Orders - SILAS NASCIMENTO RESIDENT Procedure Category Date Status Time Cyclobenzaprine PHA 01/23/25 In Process Tablet (Flexeril 09:30 Ls Spine Wo Contrast CT 01/23/25 Resulted 11:04 Discontinue Tele JAKE 01/23/25 In Process 11:25 Transfer Orders XFER 01/23/25 Transmitted 11:25 Transfer Orders XFER 01/23/25 Transmitted 11:35 Date of Service: Jan 23, 2025 Billing Provider: NICOLÁS WYATT MD Common Visit Codes: [id number] INP/OBS CARE(HIGH) SILAS NASCIMENTO RESIDENT Jan 23, 2025 16:54 NICOLÁS WYATT MD Jan 27, 2025 23:42
[2025-01-24 00:49] VITALS: BP 118/94; PULSE 102; RESP 20; TEMP 99.6; O2SAT 94
[2025-01-24 05:04] VITALS: BP 121/70; PULSE 93; RESP 20; TEMP 98.7; O2SAT 92
[2025-01-24 07:54] LABS: Anion Gap 8 (5-15); Carbon Dioxide 26 mmol/L (20-31); Chloride 104 mmol/L (98-107); Potassium 4.6 mmol/L (3.5-5.1); Sodium 138 mmol/L (136-145)
[2025-01-24 07:55] LABS: Calcium 9.9 mg/dL (8.7-10.4)
[2025-01-24 07:59] LABS: Basophils # (auto) 0 10 ^3/uL (0-0.2); Basophils % (auto) 0.2 % (0.0-2.0); Eosinophils # (auto) 0 10 ^3/uL (0-0.8); Red Cell Distribution Width 12.9 % (11.8-14.3)
[2025-01-24 08:00] VITALS: PULSE 85; PULSE 88; RESP 18; O2SAT 94
[2025-01-24 08:00] LABS: BUN/Creatinine Ratio 21.6 (10.0-20.0); Blood Urea Nitrogen 22 mg/dL (9-23); Glucose 120 mg/dL (74-106)
[2025-01-24 08:03] LABS: Eosinophils % (auto) 0.1 % (0.0-7.0); Hematocrit 40.8 % (41.0-53.0); Hemoglobin 14.2 g/dL (13.5-17.5); Lymphocytes % (auto) 7.7 % (10.0-50.0); Mean Corpuscular Hemoglobin 33.8 pg (28.0-32.0); Mean Corpuscular Hgb Conc. 34.7 g/dL (32.0-36.0); Mean Corpuscular Volume 97.5 fL (80.0-100.0); Monocytes # (auto) 0.8 10 ^3/uL (0-1.3); Neutrophils # (auto) 11.7 10 ^3/uL (1.6-8.6); Platelet Count (auto) 319 10^3/uL (140-450); Red Blood Cells 4.19 10^6/uL (4.5-5.90); White Blood Cell 13.6 10^3/uL (4.4-10.8)
[2025-01-24 09:00] VITALS: BP_SYST 72; PULSE 85; RESP 18; TEMP 98; O2SAT 94
[2025-01-24] MEDS ORDERED: ATOR40TA52 PO (11:39)
[2025-01-24] MEDS ORDERED: CYCL-837 PO (11:39)
--- NOTE | 2025-01-24 11:50 | DVHDSRES ---
Discharge Summary Date of Admission Resident Creating Document: SILAS NASCIMENTO RESIDENT Jan 21, 2025 at 23:46 Date of Discharge: Jan 24, 2025 Admitting Diagnosis Status post mechanical fall Wounds: No wound was present. Labs/Diagnostic Data: Laboratory Results Test 01/24/25 06:56 01/22/25 04:24 01/22/25 02:07 01/22/25 01:54 White Blood Count 13.6 10^3/uL (4.4-10.8) Red Blood Count 4.19 10^6/uL (4.5-5.90) Hemoglobin 14.2 g/dL (13.5-17.5) Hematocrit 40.8 % (41.0-53.0) Mean Corpuscular Volume 97.5 fL (80.0-100.0) Mean Corpuscular Hemoglobin 33.8 pg (28.0-32.0) Mean Corpuscular Hemoglobin Concent 34.7 g/dL (32.0-36.0) Red Cell Distribution Width 12.9 % (11.8-14.3) Platelet Count 319 10^3/uL (140-450) Mean Platelet Volume 7.0 fL (6.9-10.8) Neutrophils (%) (Auto) 86.0 % (37.0-80.0) Lymphocytes (%) (Auto) 7.7 % (10.0-50.0) Monocytes (%) (Auto) 6.0 % (0.0-12.0) Eosinophils (%) (Auto) 0.1 % (0.0-7.0) Basophils (%) (Auto) 0.2 % (0.0-2.0) Neutrophils # (Auto) 11.7 10 ^3/uL (1.6-8.6) Lymphocytes # (Auto) 1.0 10 ^3/uL (0.4-5.4) Monocytes # (Auto) 0.8 10 ^3/uL (0-1.3) Eosinophils # (Auto) 0 10 ^3/uL (0-0.8) Basophils # (Auto) 0 10 ^3/uL (0-0.2) Nucleated Red Blood Cells 0.0 % Sodium Level 138 mmol/L (136-145) Potassium Level 4.6 mmol/L (3.5-5.1) Chloride Level 104 mmol/L (98-107) Carbon Dioxide Level 26 mmol/L (20-31) Anion Gap 8 (5-15) Blood Urea Nitrogen 22 mg/dL (9-23) Creatinine 1.02 mg/dL (0.700-1.30) Glomerular Filtration Rate Calc 86 mL/min (>90) BUN/Creatinine Ratio 21.6 (10.0-20.0) Serum Glucose 120 mg/dL (74-106) Calcium Level 9.9 mg/dL (8.7-10.4) B-Type Natriuretic Peptide 12.57 pg/mL (0-100) Thyroid Stimulating Hormone (TSH) 14.93 uIU/mL (0.55-4.78) Urine Color Colorless (Yellow) Urine Clarity Clear (Clear) Urine pH 7.5 (5.0-9.0) Urine Specific [place] 1.009 (1.001-1.035) Urine Protein Negative (Negative) Urine Ketones Negative (Negative) Urine Blood Negative /uL (Negative) Urine Nitrite Negative (Negative) Urine Bilirubin Negative (Negative) Urine Urobilinogen Normal mg/dL (Negative) Urine Leukocyte Esterase Negative /uL (Negative) Urine RBC <1 /hpf (0 - 3) Urine Microscopic WBC < 1 /HPF (0-3) Urine Squamous Epithelial Cells Few /hpf (<5) Urine Bacteria None seen /hpf (None Seen) Urine Glucose Normal mg/dL (Normal) Urine Opiates Screen Neg (NEGATIVE) Urine Fentanyl Screen Neg (NEGATIVE) Urine Barbiturates Screen Neg (NEGATIVE) Urine Phencyclidine Screen Neg (NEGATIVE) Urine Amphetamines Screen Pos (NEGATIVE) Urine Benzodiazepines Screen Neg (NEGATIVE) Urine Cocaine Screen Neg (NEGATIVE) Urine Cannabinoids Screen Pos (NEGATIVE) Creatine Kinase 86 U/L (46-171) Troponin I High Sensitivity 64 ng/L (</=54) Test 01/21/25 22:40 01/21/25 22:30 Hemoglobin A1c 5.2 % A1C (<5.7) Lactic Acid Level 1.8 mmol/L (0.4-2.0) Total Bilirubin 0.6 mg/dL (0.2-1.0) Aspartate Amino Transferase (AST) 18 U/L (13-40) Alanine Aminotransferase (ALT) 21 U/L (7-40) Alkaline Phosphatase 104 U/L (46-116) Total Protein 7.6 g/dL (5.7-8.2) Albumin 4.9 g/dL (3.2-4.8) Triglycerides Level 377 mg/dL (< 150) Cholesterol Level 212 mg/dL (< 200) LDL Cholesterol 128 mg/dL (< 100) HDL Cholesterol 39 mg/dL (40-59) Other Laboratory Tests 01/24/25 06:56 Brief Hx & Hospital Course: This is a 54 year old male with a past medical history of psoriatic arthritis and hypothyroidism who presented to the ED with a chief complaints of mid back pain. According to the patient, he slipped and fell after shower. He mentioned that the floor was wet and he fell without loss of consciousness. He did not want to come to the ED until his daughter forced him to come to the ED and she called 911. CT pelvic did not reveal any trauma related changes. Possible small airways disease in the lower lobes of the lungs. He takes Enbrel for his psoriatic arthritis. On further questioning, Patient admits to using marijuana, has a remote history of methamphetamine and cocaine. However, he recently had cocaine and amphetamine use with his friends. This could probably explain the elevated troponin noted on today's examination lab work. Hospital course: Initial CT abdomen pelvis was negative for trauma. UDS was positive for amphetamine and cannabinoids, troponin trends were mildly elevated and flat , ekg was unremarkable. Patient was complaining of severe back pain and not able to move and CT L/S spine excluded fracture or dislocation. Patient was treated with Morphine 42 mg IV q4 p.r.n, Flexeril 5 mg q8 p.r.n and methylprednisolone 80 mg IV once and continued home medications. Today morning during round he mentioned improvement of back pain and returned to baseline. Discharge plan was discussed with the patient and all questions were answered. Patient is being discharged to home with Flexeril 10 mg po at HS for 7 days and advised to follow up with PCP in 1 week. Physical examination: General Appearance: Alert, Oriented X3, Cooperative, No acute distress HEENT: Atraumatic, PERRLA, EOMI, Mucous membrane moist/pink Respiratory: Clear to auscultation, Normal air movement Cardiovascular: Regular rate, Normal S1, Normal S2, No murmurs, no chest wall tenderness Abdominal: Normal bowel sounds, Soft, No tenderness, No hepatospenomegaly, No masses Extremities: No clubbing, No cyanosis, No edema, Normal pulses, No tenderness/swelling Skin: No rashes, No breakdown, No significant lesion Neuro: Normal gait, Normal speech, Strength at 5/5 X4 ext, Normal tone, Sensation intact, Cranial nerves 3-12 NL, Reflexes 2+ Psych/Mental Status: Mental status NL, Mood NL Discharge diagnosis: # S/P mechanical fall # Acute back pain likely musculoskeletal # Polysubstance abuse disorder # Possible NSTEMI type 2, ruled out ACS # History of psoriatic arthritis # Chronic hypothyroidism # Dyslipidemia # Class 2 obesity, BMI 34.9 kg/m2 Consults/Reason for consult No consultation was done. Operations or Procedures Exam: CT AB PEL WO CON-NO ORAL OR IV History: low back pain/fall injury FINDINGS: Lung bases demonstrate possible small airways disease. Heart is normal in size. Lower esophagus is unremarkable. Liver, gallbladder, spleen, pancreas, adrenals, liver, bladder, prostate, gastrointestinal tract are grossly unremarkable. Patient has probably had appendectomy. Pelvis is intact. Visualized ribs are intact. There is a simple cyst in the inferior pole of the right kidney which is of no clinical consequence . There is anterior wedging of L1 and T12 and T11. No definite fractures. No hernias are appreciated. IMPRESSION: 1. No trauma related changes. Possible small airways disease in the lower lobes of the lungs. CT HEAD WITHOUT CONTRAST INDICATION: fall FINDINGS: There is no evidence of intracranial hemorrhage, infarct, extra-axial collection, mass effect, midline shift, herniation or hydrocephalus. The ventricles, sulci and cisterns are normal. The moore-white differentiation is normal. Mucosal thickening in right frontal, bilateral ethmoid and right maxillary sinuses. Mastoid air cells and middle ear cavities are clear. Soft tissues and osseous structures are unremarkable. IMPRESSION: No intracranial abnormality identified. EXAM: CT LS SPINE WO CONTRAST HISTORY: Severe back pain FINDINGS: No CT evidence of definite acute fracture, spinal dislocation, or significant appearing acute subluxation is seen. The visualized paraspinal soft tissues are grossly unremarkable. Mild disc osteophyte hypertrophy and suggestion of mild canal stenosis at L4-L5. IMPRESSION: No definite CT evidence of acute fracture or dislocation of the bony lumbar spine. Condition at Discharge: Stable Final Diagnosis/Problems List # S/P mechanical fall # Acute back pain likely musculoskeletal # Polysubstance abuse disorder # Possible NSTEMI type 2, ruled out ACS # History of psoriatic arthritis # Chronic hypothyroidism # Dyslipidemia # Leucocytosis likely steroid induced. # Class 2 obesity, BMI 34.9 kg/m2 Discharge Disposition: Home Discharge Instruct/Medications Diet: Regular Activity: No Restrictions, As Tolerated Follow Up/Referral: Follow up with PCP in 1 week Medications: Flexeril 10 mg p.o. at HS for 7 days Atorvastatin 40 mg at HS daily Discharge Statement: "Patient was advised to return to the ER or call 911 if any headaches, dizziness, shortness of breath, chest pain, abdominal pain, bleeding, fevers, or worsening of medical condition. Patient was counseled about treatment plan, medications, possible side effects, patientverbalized understanding. All questions were answered to the best of my ability. This discharge took greater then 30 minutes in planning, reviewing documentation, counseling the patient, and discussing with other team members." ASSESSMENT ASSESSMENT Assessment # S/P mechanical fall # Acute back pain likely musculoskeletal # Polysubstance abuse disorder # Possible NSTEMI type 2, ruled out ACS # History of psoriatic arthritis # Chronic hypothyroidism # Dyslipidemia # Leucocytosis likely steroid induced. # Class 2 obesity, BMI 34.9 kg/m2 Date of Service: Jan 24, 2025 Billing Provider: NICOLÁS WYATT MD Common Visit Codes: 00430-NCM/OBS DISCH DAY >30min SILAS NASCIMENTO Jan 24, 2025 11:50 NICOLÁS WYATT MD Jan 28, 2025 00:23
[2025-01-24 12:19] VITALS: BP 116/72; PULSE 85; RESP 18; TEMP 98; O2SAT 94
--- NOTE | 2025-01-25 17:27 | DVHSR ---
APPROVED REPORT EXAM: Two-dimensional and M-mode echocardiogram with Doppler and color Doppler. Blood Pressure: 119/73 mmHg INDICATION NSTEMI RISK FACTORS Height: 6'4", Weight: 271 DIMENSIONS LVDd5.3 (3.8-5.7cm)LA (2D)4.2 (1.9-4.0cm)Aortic Root4.0 (2.0-3.7cm) LVDs4.0 (2.5-4.0cm)LA (MM) (1.9-4.0cm)Aortic Cusp Exc (1.5-2.0cm) EF (%) 50.0 (55-70%)Rt. Atrium4.2 (1.9-4.0cm)Asc. Aorta cm IVSd1.6 (0.7-1.1cm)RV (D) (1.8-2.4cm) PWd1.2 (0.7-1.1cm) Mitral Valve MitralMitral Stenosis E wave0.35m/sMV Mean GR.mmHg A wave0.67m/sMV Peak GR.mmHg E/A ratio0.52D MVAcm2 DECEL [id number] 1/2 Timems Aortic Valve Aortic ValveAortic Stenosis V10.82m/Tamir Mean GR.3mmHg V21.11m/Tamir Peak GR.5mmHg LVOT Diameter2.3 (1.8-2.4cm)Doppler AVA3.07cm2 Pulmonic Valve V20.92m/s Other Information Quality : Technically LimitedRhythm : Technically limited study due to body habitus. Conclusion Technically good study. Sinus rhythm. Concentric LVH. Biatrial enlargement. Aortic root enlargement. Valves appear to be structurally normal. EF of 55-60% with normal RV function. Doppler is unremarkable. No pericardial effusion masses or vegetations.
== END 2025-01-24 13:00 | disposition home or self-care (01) | DRG 347 ==
LOC: ER 21:35 → EDBD 21:35 → OVERFLOW 23:46 → TELE-WESTW 01-22 15:39
PROVIDERS: ADMIT Student in an Organized Health Care Education/Training Program; ATTEND Student in an Organized Health Care Education/Training Program
DX: M54.89 Other dorsalgia (principal); I21.A1 Myocardial infarction type 2; L40.50 Arthropathic psoriasis, unspecified; D72.829 Elevated white blood cell count, unspecified; E03.9 Hypothyroidism, unspecified; E66.812 Obesity, class 2; F19.10 Other psychoactive substance abuse, uncomplicated; Z79.899 Other long term (current) drug therapy; Z68.34 Body mass index [BMI] 34.0-34.9, adult; W18.39XA Other fall on same level, initial encounter; Y93.89 Activity, other specified; Y92.89 Other specified places as the place of occurrence of the external cause; Y99.8 Other external cause status
CPT/HCPCS: 36415; 70450; 71045; 72131; 74176; 80048; 80053; 80061; 80307; 81001; 82550; 83036; 83605; 83880; 84443; 84484; 85025; 93306; 99291; G0378; J1885